=== PATIENT | male | born 1980 | race Caucasian/White ===

== ENCOUNTER 2018-07-21 16:51 | Emergency (ER) | payer SELFPAY ==
[2018-07-21] MEDS ORDERED: PHENYLEPHRINE 0.5% NOSE 15ML NAS ONE (17:40)
--- NOTE | 2018-07-21 19:07 | EDPHYS ---
Physician Documentation [facility] Name: Ravi Alvarado Age: 37 yrs Sex: Male : 1980 Arrival Date: 07/21/2018 Time: 16:55 Bed Treatment Private MD: ED Physician Jordan Rodrigues HPI: 07/21 19:04 This 37 yrs old Male presents to ER via Ambulatory with complaints of Nose gs Bleed. 19:04 The patient presents with a nose bleed, that is apparently anterior, from the left gs nare. Onset: The symptoms/episode began/occurred acutely. Modifying factors: The symptoms are alleviated by nothing. the symptoms are aggravated by nothing. Associated signs and symptoms: Pertinent negatives: blurred vision, chest pain, lightheadedness. Severity of symptoms: At their worst the symptoms were moderate in the emergency department the symptoms are unchanged. The patient has experienced similar episodes in the past, a few times. Historical: - Allergies: 17:03 No Known Allergies; sv - Home Meds: 17:03 excedrin [Active]; sv - PMHx: 19:07 Hypertension; gs - PSHx: 17:03 jaw; eye socket; sv - Immunization history:: Flu vaccine is not up to date. - Social history:: Smoking status: Patient uses tobacco products, vape. - Ebola Screening: : No symptoms or risks identified at this time. ROS: 19:04 All other systems are negative. gs Exam: 19:04 Head/Face: Normocephalic, atraumatic. Eyes: Pupils equal round and reactive to light, gs extra-ocular motions intact. Lids and lashes normal. Conjunctiva and sclera are non-icteric and not injected. Cornea within normal limits. Periorbital areas with no swelling, redness, or edema. Neck: Trachea midline, no thyromegaly or masses palpated, and no cervical lymphadenopathy. Supple, full range of motion without nuchal rigidity, or vertebral point tenderness. No Meningismus. Chest/axilla: Normal chest wall appearance and motion. Nontender with no deformity. No lesions are appreciated. Cardiovascular: Regular rate and rhythm with a normal S1 and S2. No gallops, murmurs, or rubs. Normal PMI, no JVD. No pulse deficits. Respiratory: Lungs have equal breath sounds bilaterally, clear to auscultation and percussion. No rales, rhonchi or wheezes noted. No increased work of breathing, no retractions or nasal flaring. Abdomen/GI: Soft, non-tender, with normal bowel sounds. No distension or tympany. No guarding or rebound. No evidence of tenderness throughout. Back: No spinal tenderness. No costovertebral tenderness. Full range of motion. Skin: Warm, dry with normal turgor. Normal color with no rashes, no lesions, and no evidence of cellulitis. Neuro: Awake and alert, GCS 15, oriented to person, place, time, and situation. Cranial nerves II-XII grossly intact. Motor strength 5/5 in all extremities. Sensory grossly intact. Cerebellar exam normal. Normal gait. 19:04 Constitutional: The patient appears alert, awake. 19:04 ENT: Nose: bleeding, is seen from the left nare, and is minimal, clotted blood, in left nare. Vital Signs: 17:04 BP 150 / 82; Pulse 67; Resp 16; Temp 98.4; Pulse Ox 97% ; Weight 97.52 kg; Height 6 ft. sv 1 in. (185.42 cm); Pain 0/10; 17:04 Body Mass Index 28.37 (97.52 kg, 185.42 cm) sv Procedures: 19:04 Epistaxis treatment: A small amount of bleeding noted from Treated using Oxymetazoline gs sprays, direct pressure, Bleeding stopped. MDM: 17:13 Patient medically screened. gs 19:04 Differential diagnosis: sinusitis, epistaxis r/t trauma, spontaneous epistaxis. Data gs reviewed: vital signs, nurses notes. Response to treatment: the patient's symptoms have markedly improved after treatment, the patient's symptoms have resolved after treatment, the patient's condition has returned to base line, and as a result, I will discharge patient. Administered Medications: 17:42 Drug: Travon-Synephrine [place] 0.5 % 2 sprays Route: Intranasal; Site: left nare; mg2 19:09 Follow up: Response: No adverse reaction wh Disposition: 07/21/18 19:06 Discharged to Home. Impression: Epistaxis. - Condition is Stable. - Discharge Instructions: Nosebleed, Adult. - Medication Reconciliation Form, Thank You Letter, Antibiotic Education, Prescription Opioid Use form. - Follow up: Ngoc Gongora MD; When: 2 - 3 days; Reason: Re-evaluation by your physician. - Problem is new. - Symptoms have improved. Signatures: Ngoc Vargas, RN RN Ruthannemil Martin Jordan Rodrigues MD MD Bimal Angel RN RN mg2 Corrections: (The following items were deleted from the chart) 19:07 17:03 PMHx: None; [facility] 19:07 19:06 07/21/2018 19:06 Discharged to Home. Impression: Epistaxis. Condition is Stable. Forms are Medication Reconciliation Form, Thank You Letter, Antibiotic Education, Prescription Opioid Use. Follow up: Emergency Department; When: 2 - 3 days; Reason: Re-evaluation by your physician. 19:20 19:07 07/21/2018 19:06 Discharged to Home. Impression: Epistaxis. Condition is Stable. Discharge Instructions: Nosebleed, Adult. Forms are Medication Reconciliation Form, Thank You Letter, Antibiotic Education, Prescription Opioid Use. Follow up: Ngoc Gongora; When: 2 - 3 days; Reason: Re-evaluation by your physician. Problem is new. Symptoms have improved.
--- NOTE | 2018-07-21 19:07 | ER ---
Nurse's Notes [facility] Name: Ravi Alvarado Age: 37 yrs Sex: Male : 1980 Arrival Date: 07/21/2018 Time: 16:55 Bed Treatment Private MD: Diagnosis: Epistaxis Presentation: 07/21 17:02 Presenting complaint: Patient states: left nostril bleeds intermittently over the last sv 3 days. Transition of care: patient was not received from another setting of care. Onset of symptoms was July 18, 2018. Care prior to arrival: None. 17:02 Method Of Arrival: Ambulatory sv 17:02 Acuity: LUCIANA 5 sv 17:45 Risk Assessment: Do you want to hurt yourself or someone else? Patient reports no mg2 desire to harm self or others. Initial Sepsis Screen: Does the patient meet any 2 criteria? No. Patient's initial sepsis screen is negative. Does the patient have a suspected source of infection? No. Patient's initial sepsis screen is negative. Triage Assessment: 17:04 General: Appears in no apparent distress. comfortable, Behavior is calm, cooperative, sv appropriate for age. Pain: Denies pain. Neuro: Level of Consciousness is awake, alert, obeys commands, Oriented to person, place, time, situation, Moves all extremities. Full function. Respiratory: Respiratory effort is even, unlabored, Respiratory pattern is regular, symmetrical. Historical: - Allergies: 17:03 No Known Allergies; sv - Home Meds: 17:03 excedrin [Active]; sv - PMHx: 19:07 Hypertension; gs - PSHx: 17:03 jaw; eye socket; sv - Immunization history:: Flu vaccine is not up to date. - Social history:: Smoking status: Patient uses tobacco products, vape. - Ebola Screening: : No symptoms or risks identified at this time. Screenin:42 Abuse screen: Denies threats or abuse. Denies injuries from another. Nutritional mg2 screening: No deficits noted. Tuberculosis screening: No symptoms or risk factors identified. Fall Risk None identified. Assessment: 17:43 General: Appears in no apparent distress. comfortable, Behavior is calm, cooperative. mg2 Pain: Denies pain. Neuro: Level of Consciousness is awake, alert, obeys commands, Oriented to person, place, time, situation. Cardiovascular: Capillary refill < 3 seconds Patient's skin is warm and dry. Respiratory: Airway is patent Respiratory effort is even, unlabored, Respiratory pattern is regular, symmetrical. GI: No deficits noted. : No deficits noted. EENT: Nares on left. Derm: Skin is intact, is healthy with good turgor, Skin is pink, warm \T\ dry. normal. Musculoskeletal: Circulation, motion, and sensation intact. Capillary refill < 3 seconds. Vital Signs: 17:04 BP 150 / 82; Pulse 67; Resp 16; Temp 98.4; Pulse Ox 97% ; Weight 97.52 kg; Height 6 ft. sv 1 in. (185.42 cm); Pain 0/10; 17:04 Body Mass Index 28.37 (97.52 kg, 185.42 cm) sv ED Course: 16:55 Patient arrived in ED. mr 17:03 Triage completed. sv 17:04 Arm band placed on. sv 17:05 Jordan Rodrigues MD is Attending Physician. 17:05 Maine Templeton RN is Primary Nurse. iw 17:43 Patient did not have IV access during this emergency room visit. mg2 17:45 Patient has correct armband on for positive identification. mg2 19:06 Ngoc Gongora MD is Referral Physician. 19:17 No provider procedures requiring assistance completed. Administered Medications: 17:42 Drug: Travon-Synephrine [place] 0.5 % 2 sprays Route: Intranasal; Site: left nare; mg2 19:09 Follow up: Response: No adverse reaction Outcome: 19:06 Discharge ordered by MD. 19:17 Discharged to home ambulatory. 19:17 Condition: good 19:17 Discharge instructions given to patient, Instructed on discharge instructions, follow up and referral plans. POC Epistaxis Demonstrated understanding of instructions, follow-up care, POC 19:20 Patient left the ED. Signatures: Ngoc Vargas RN RN sv Rivera, Mary mr Maine Templeton RN RN Martin Burr Jordan Rodrigues MD MD Bimal Angel RN RN mg2 Corrections: (The following items were deleted from the chart) 19:07 17:03 [facility]Hx: [facility]; [facility]
== END 2018-07-21 19:20 | disposition home or self-care (01) ==
LOC: ER 16:51
DX: R04.0 Epistaxis (principal); F17.290 Nicotine dependence, other tobacco product, uncomplicated
CPT/HCPCS: 30901; 99283